=== PATIENT | male | born 1955 | race African-American/Black ===

== ENCOUNTER 2021-01-28 10:29 | Emergency (ER) | payer MEDICARE, OTHER ==
[~2021-01-28] VITALS: Ht 185.4 cm; Wt 67.0 kg
[2021-01-28 11:05] LABS: BASOPHILS % 0.4 % (0.0-2.0); EOSINOPHILS % 1.5 % (0.0-5.0); HEMOGLOBIN. 13.6 g/dL (14.0-18.0); LYMPHOCYTES % 21.4 % (20.0-50.0); MEAN CORPUSCULAR HEMOGLOBIN 32.1 pg (28.0-32.0); MEAN CORPUSCULAR VOLUME 94.4 fL (80.0-94.0); MEAN PLATELET VOLUME 8.7 fl (7.4-10.4); MONOCYTES % 7.3 % (2.0-8.0); NEUTROPHILS % 69.4 % (40.0-76.0); PLATELET 257 x1000/uL (130-400); RED BLOOD CELL COUNT 4.24 mill/uL (4.7-6.1); RED CELL DISTRIBUTION WIDTH 15.1 % (11.6-14.6)
[2021-01-28 11:12] LABS: CHLORIDE 103 mEq/L (98-107)
[2021-01-28 12:45] LABS: CLARITY URINE CLEAR (CLEAR); COLOR URINE YELLOW (YELLOW); KETONES URINE NEGATIVE (NEGATIVE); LEUKOCYTE ESTERASE URINE NEGATIVE (NEGATIVE); NITRITE URINE NEGATIVE (NEGATIVE); OCCULT BLOOD URINE TRACE (NEGATIVE); PROTEIN URINE 3+ (NEGATIVE); SPECIFIC GRAVITY URINE 1.017 (1.005-1.030); UROBILINOGEN URINE 0.2 E.U./dL (0.2-1.0)
[2021-01-28 13:21] VITALS: BP 170/84
== END 2021-01-28 13:31 | disposition home or self-care (01) ==
LOC: ER 10:42
DX: E11.649 Type 2 diabetes mellitus with hypoglycemia without coma (principal); I10 Essential (primary) hypertension
CPT/HCPCS: 36415; 80053; 81003; 82962; 85025; 93005; 99284

== ENCOUNTER 2021-11-20 09:10 | Inpatient (IN) | payer MEDICARE, OTHER ==
[~2021-11-20] VITALS: Ht 188 cm; Wt 80.4 kg
[2021-11-20] VITALS (16 sets, daily range): BP systolic 103–142; BP diastolic 57–75
[2021-11-20 10:30] LABS: BASOPHILS % 0.4 % (0.0-2.0); HEMATOCRIT. 39.7 % (42.0-52.0); HEMOGLOBIN. 13.3 g/dL (14.0-18.0); LYMPHOCYTES % 10.7 % (20.0-50.0); MEAN CORPUSCULAR HEMOGLOBIN 31.1 pg (28.0-32.0); MEAN CORPUSCULAR VOLUME 92.9 fL (80.0-94.0); MEAN PLATELET VOLUME 9.1 fl (7.4-10.4); MONOCYTES % 7.9 % (2.0-8.0); PLATELET 220 x1000/uL (130-400); RED BLOOD CELL COUNT 4.27 mill/uL (4.7-6.1); RED CELL DISTRIBUTION WIDTH 13.9 % (11.6-14.6)
[2021-11-20] MEDS ORDERED: LEVETIRACETAM 500MG PREMIX 100 ML IV SCH (10:30)
[2021-11-20] MEDS ORDERED: NICARDIPINE 100 MG in SODIUM CHLORIDE 0.9% 60 ML IV PRN (10:30)
[2021-11-20 10:36] LABS: CHLORIDE 103 mEq/L (98-107)
[2021-11-20 10:41] LABS: PROTHROMBIN TIME 11.1 sec (9.6-11.0)
[2021-11-20 10:42] LABS: ETHANOL BLOOD < 10 mg/dL
[2021-11-20] MEDS: NICARDIPINE 100 MG in SODIUM CHLORIDE 0.9% 60 ML IV PRN (11:33)
[2021-11-20] MEDS ORDERED: INSULIN REGULAR (HUMULIN R) 300UNITS/3ML VIAL SUBCUT ONE (11:45)
[2021-11-20 13:00] LABS: CLARITY URINE CLEAR (CLEAR); COLOR URINE YELLOW (YELLOW); KETONES URINE 1+ (NEGATIVE); LEUKOCYTE ESTERASE URINE NEGATIVE (NEGATIVE); NITRITE URINE NEGATIVE (NEGATIVE); OCCULT BLOOD URINE 3+ (NEGATIVE); PH URINE 5.5 (4.5-8.0); PROTEIN URINE 4+ (NEGATIVE); SPECIFIC GRAVITY URINE 1.027 (1.005-1.030); UROBILINOGEN URINE 0.2 E.U./dL (0.2-1.0)
[2021-11-20 13:17] LABS: *AMPHETAMINES SCREEN URINE NEGATIVE (NEGATIVE); *BARBITURATES SCREEN URINE NEGATIVE (NEGATIVE); *BENZODIAZEPINES SCREEN URINE NEGATIVE (NEGATIVE); METHADONE URINE SCREEN NEGATIVE (NEGATIVE); OPIATES URINE SCREEN NEGATIVE (NEGATIVE)
[2021-11-20 13:18] LABS: *COCAINE SCREEN URINE NEGATIVE (NEGATIVE); PHENCYCLIDINE URINE SCREEN NEGATIVE (NEGATIVE)
[2021-11-20 13:24] LABS: CANNABINOID URINE SCREEN PRESUMTIVE POSITIVE (NEGATIVE)
[2021-11-20] MEDS ORDERED: ACETAMINOPHEN 325MG TABLET PO PRN (17:45)
[2021-11-20] MEDS ORDERED: HYDROCODONE/ACETAMINOPHEN 5/325MG TABLET PO PRN (17:45)
[2021-11-20] MEDS ORDERED: IPRATROPIUM/ALBUTEROL 0.5-3(2.5)MG/3ML NEB HHN PRN (17:45)
[2021-11-20] MEDS ORDERED: DOCUSATE SODIUM 100MG CAPSULE PO PRN (17:45)
[2021-11-20] MEDS ORDERED: DEXT 5%/LACTATED RINGERS 1,000 ML IV SCH (18:00)
[2021-11-20 21:57] LABS: CREATINE KINASE MB FRACTION 6.4 ng/mL (0.5-3.6)
[2021-11-20] MEDS: LEVETIRACETAM 500MG PREMIX 100 ML IV SCH (22:45)
[2021-11-21] VITALS (54 sets, daily range): BP systolic 108–150; BP diastolic 57–101
[2021-11-21] MEDS: NICARDIPINE 100 MG in SODIUM CHLORIDE 0.9% 60 ML IV PRN (04:58)
[2021-11-21 05:26] LABS: BASOPHILS % 0.3 % (0.0-2.0); EOSINOPHILS % 0.1 % (0.0-5.0); HEMATOCRIT. 34.8 % (42.0-52.0); HEMOGLOBIN. 11.2 g/dL (14.0-18.0); LYMPHOCYTES % 15.8 % (20.0-50.0); MEAN CORPUSCULAR HEMOGLOBIN 31.2 pg (28.0-32.0); MEAN CORPUSCULAR VOLUME 96.5 fL (80.0-94.0); MEAN PLATELET VOLUME 10.2 fl (7.4-10.4); MONOCYTES % 9.2 % (2.0-8.0); NEUTROPHILS % 74.6 % (40.0-76.0); PLATELET 195 x1000/uL (130-400); RED CELL DISTRIBUTION WIDTH 14.1 % (11.6-14.6)
[2021-11-21] MEDS ORDERED: CEFTRIAXONE 1 G PREMIX 50 ML IV SCH (09:00)
[2021-11-21] MEDS ORDERED: DEXTROSE 50% WATER 50ML SYRINGE IV PRN (09:00)
[2021-11-21] MEDS ORDERED: NALOXONE HCL 0.4MG/ML VIAL IV PRN (09:00)
[2021-11-21] MEDS: BLOOD SUGAR DIAGNOSTIC STRIP TEST SCH ×4 (09:00→21:43)
[2021-11-21] MEDS ORDERED: NALOXONE HCL 0.4 MG/ML 1ML VIAL IV NR (09:15)
[2021-11-21 09:27] LABS: CHLORIDE 104 mEq/L (98-107)
[2021-11-21] MEDS ORDERED: NALOXONE HCL 0.4 MG/ML 1ML VIAL ONE (09:28)
[2021-11-21 09:33] LABS: PHOSPHORUS 3.8 mg/dL (2.5-4.9)
[2021-11-21 09:49] LABS: CREATINE KINASE 1830 IU/L (39-308)
[2021-11-21] MEDS: INSULIN LISPRO 100 UNITS/ML SUBCUT SCH ×4 (09:58→21:46)
[2021-11-21] MEDS: SODIUM CHLORIDE 0.9% 1,000 ML IV SCH ×2 (10:34→21:44)
[2021-11-21] MEDS: CEFTRIAXONE 1,000 MG in DEXTROSE 5% WATER 50 ML IV SCH (10:35)
[2021-11-21] MEDS: LEVETIRACETAM 500MG PREMIX 100 ML IV SCH ×2 (11:19→21:44)
[2021-11-21] MEDS: LACTULOSE 20G/30ML UDC PO SCH ×2 (18:20→21:57)
[2021-11-21 19:11] LABS: T4 FREE 1.1 ng/dL (0.76-1.46)
[2021-11-21 19:21] LABS: FOLIC ACID (FOLATE) SERUM 13.4 ng/mL (>5.38)
[2021-11-21] MEDS: INSULIN GLARGINE UD 100 UNITS/ML SYR SUBCUT SCH (21:59)
[2021-11-22] VITALS (58 sets, daily range): BP systolic 107–156; BP diastolic 63–95
[2021-11-22 05:36] LABS: BASOPHILS % 0.3 % (0.0-2.0); EOSINOPHILS % 0.6 % (0.0-5.0); HEMATOCRIT. 37.8 % (42.0-52.0); HEMOGLOBIN. 12.8 g/dL (14.0-18.0); LYMPHOCYTES % 15.8 % (20.0-50.0); MEAN CORPUSCULAR HEMOGLOBIN 31.7 pg (28.0-32.0); MEAN CORPUSCULAR VOLUME 93.4 fL (80.0-94.0); MEAN PLATELET VOLUME 9.7 fl (7.4-10.4); MONOCYTES % 10.3 % (2.0-8.0); PLATELET 203 x1000/uL (130-400); RED BLOOD CELL COUNT 4.04 mill/uL (4.7-6.1); RED CELL DISTRIBUTION WIDTH 13.8 % (11.6-14.6)
[2021-11-22 05:57] LABS: PHOSPHORUS 3.5 mg/dL (2.5-4.9)
[2021-11-22] MEDS: LACTULOSE 20G/30ML UDC PO SCH ×3 (06:00→22:05)
[2021-11-22] MEDS: SODIUM CHLORIDE 0.9% 1,000 ML IV SCH (06:00)
[2021-11-22] MEDS: BLOOD SUGAR DIAGNOSTIC STRIP TEST SCH ×4 (07:14→21:59)
[2021-11-22] MEDS: INSULIN LISPRO 100 UNITS/ML SUBCUT SCH ×4 (07:54→21:00)
[2021-11-22] MEDS: LEVETIRACETAM 500MG PREMIX 100 ML IV SCH ×2 (10:29→21:59)
[2021-11-22] MEDS: SODIUM CHLORIDE 0.45% 1,000 ML IV SCH ×2 (10:34→21:54)
[2021-11-22] MEDS: CEFTRIAXONE 1,000 MG in DEXTROSE 5% WATER 50 ML IV SCH (12:13)
[2021-11-22] MEDS: NICARDIPINE 100 MG in SODIUM CHLORIDE 0.9% 60 ML IV PRN (16:24)
[2021-11-22] MEDS: INSULIN GLARGINE UD 100 UNITS/ML SYR SUBCUT SCH (22:07)
[2021-11-23] VITALS (89 sets, daily range): BP systolic 73–187; BP diastolic 13–128
[2021-11-23 04:49] LABS: BASOPHILS % 0.5 % (0.0-2.0); EOSINOPHILS % 2.4 % (0.0-5.0); HEMATOCRIT. 34.7 % (42.0-52.0); HEMOGLOBIN. 11.9 g/dL (14.0-18.0); MEAN CORPUSCULAR VOLUME 93.3 fL (80.0-94.0); MEAN PLATELET VOLUME 9.5 fl (7.4-10.4); MONOCYTES % 10.1 % (2.0-8.0); PLATELET 181 x1000/uL (130-400); RED BLOOD CELL COUNT 3.71 mill/uL (4.7-6.1); RED CELL DISTRIBUTION WIDTH 13.4 % (11.6-14.6)
[2021-11-23 05:06] LABS: CHLORIDE 110 mEq/L (98-107)
[2021-11-23] MEDS: SODIUM CHLORIDE 0.45% 1,000 ML IV SCH ×2 (06:16→16:11)
[2021-11-23] MEDS: LACTULOSE 20G/30ML UDC PO SCH ×3 (06:17→21:24)
[2021-11-23] MEDS: BLOOD SUGAR DIAGNOSTIC STRIP TEST SCH ×4 (06:30→20:37)
[2021-11-23] MEDS: INSULIN LISPRO 100 UNITS/ML SUBCUT SCH ×4 (06:37→20:38)
[2021-11-23] MEDS ORDERED: POTASSIUM CHLORIDE 20MEQ/PACKET PO SCH (08:00)
[2021-11-23] MEDS: LEVETIRACETAM 500MG PREMIX 100 ML IV SCH ×2 (08:33→20:07)
[2021-11-23] MEDS: CEFTRIAXONE 1,000 MG in DEXTROSE 5% WATER 50 ML IV SCH (11:51)
[2021-11-23] MEDS: CLONIDINE 0.1MG TABLET PO PRN (16:15)
[2021-11-23] MEDS: ACETAMINOPHEN 325MG TABLET PO PRN (20:08)
[2021-11-23] MEDS ORDERED: MORPHINE SULFATE 2 MG/ML CPJ (NOT FOR IM USE) IV PRN (20:45)
[2021-11-23] MEDS: INSULIN GLARGINE UD 100 UNITS/ML SYR SUBCUT SCH (21:24)
[2021-11-24] VITALS (59 sets, daily range): BP systolic 92–177; BP diastolic 24–126
[2021-11-24] MEDS: SODIUM CHLORIDE 0.45% 1,000 ML IV SCH ×3 (01:10→21:04)
[2021-11-24] MEDS: LACTULOSE 20G/30ML UDC PO SCH ×3 (05:36→21:04)
[2021-11-24] MEDS: NICARDIPINE 100 MG in SODIUM CHLORIDE 0.9% 60 ML IV PRN (05:36)
[2021-11-24] MEDS: BLOOD SUGAR DIAGNOSTIC STRIP TEST SCH ×4 (05:51→21:04)
[2021-11-24 05:52] LABS: BASOPHILS % 0.4 % (0.0-2.0); HEMATOCRIT. 33.7 % (42.0-52.0); LYMPHOCYTES % 13.4 % (20.0-50.0); MEAN CORPUSCULAR HEMOGLOBIN 30.9 pg (28.0-32.0); MEAN CORPUSCULAR VOLUME 95.1 fL (80.0-94.0); MEAN PLATELET VOLUME 9.9 fl (7.4-10.4); MONOCYTES % 10.9 % (2.0-8.0); NEUTROPHILS % 73.3 % (40.0-76.0); PLATELET 183 x1000/uL (130-400); RED BLOOD CELL COUNT 3.55 mill/uL (4.7-6.1); RED CELL DISTRIBUTION WIDTH 13.9 % (11.6-14.6)
[2021-11-24] MEDS: INSULIN LISPRO 100 UNITS/ML SUBCUT SCH ×4 (07:33→21:04)
[2021-11-24] MEDS: LEVETIRACETAM 500MG PREMIX 100 ML IV SCH ×2 (09:23→21:04)
[2021-11-24] MEDS: CEFTRIAXONE 1,000 MG in DEXTROSE 5% WATER 50 ML IV SCH (11:00)
[2021-11-24] MEDS: LIDOCAINE 5% PATCH TOP SCH (13:00)
[2021-11-24] MEDS: DILTIAZEM HCL 60MG TABLET PO SCH ×2 (14:00→21:02)
[2021-11-24] MEDS: CLONIDINE 0.1MG TABLET PO PRN (21:02)
[2021-11-24] MEDS: INSULIN GLARGINE UD 100 UNITS/ML SYR SUBCUT SCH (21:03)
[2021-11-25] VITALS (87 sets, daily range): BP systolic 125–166; BP diastolic 51–88
[2021-11-25] MEDS: ONDANSETRON HCL 4MG/2ML INJ IV PRN (03:20)
[2021-11-25] MEDS: DILTIAZEM HCL 60MG TABLET PO SCH ×3 (05:19→17:07)
[2021-11-25] MEDS: LACTULOSE 20G/30ML UDC PO SCH ×3 (05:19→22:00)
[2021-11-25 06:20] LABS: BASOPHILS % 0.2 % (0.0-2.0); EOSINOPHILS % 1.4 % (0.0-5.0); HEMATOCRIT. 34.8 % (42.0-52.0); HEMOGLOBIN. 11.5 g/dL (14.0-18.0); LYMPHOCYTES % 9.2 % (20.0-50.0); MEAN CORPUSCULAR HEMOGLOBIN 30.8 pg (28.0-32.0); MEAN CORPUSCULAR VOLUME 93.5 fL (80.0-94.0); MEAN PLATELET VOLUME 9.8 fl (7.4-10.4); MONOCYTES % 9.2 % (2.0-8.0); PLATELET 196 x1000/uL (130-400); RED BLOOD CELL COUNT 3.72 mill/uL (4.7-6.1); RED CELL DISTRIBUTION WIDTH 13.8 % (11.6-14.6)
[2021-11-25] MEDS: BLOOD SUGAR DIAGNOSTIC STRIP TEST SCH ×4 (06:35→21:21)
[2021-11-25] MEDS: INSULIN LISPRO 100 UNITS/ML SUBCUT SCH ×4 (06:35→21:00)
[2021-11-25 06:59] LABS: PHOSPHORUS 2.6 mg/dL (2.5-4.9)
[2021-11-25] MEDS: LEVETIRACETAM 500MG PREMIX 100 ML IV SCH ×2 (08:00→22:31)
[2021-11-25] MEDS: SODIUM CHLORIDE 0.45% 1,000 ML IV SCH ×2 (08:00→18:22)
[2021-11-25] MEDS: LIDOCAINE 5% PATCH TOP SCH (08:01)
[2021-11-25] MEDS: NICARDIPINE 100 MG in SODIUM CHLORIDE 0.9% 60 ML IV PRN (08:11)
[2021-11-25] MEDS: CLONIDINE 0.1MG TABLET PO PRN (12:21)
[2021-11-25] MEDS: CEFTRIAXONE 1,000 MG in DEXTROSE 5% WATER 50 ML IV SCH (12:21)
[2021-11-25] MEDS: METOCLOPRAMIDE HCL 10MG/2ML VIAL IV SCH (17:07)
[2021-11-25] MEDS: INSULIN GLARGINE UD 100 UNITS/ML SYR SUBCUT SCH (23:03)
[2021-11-26] VITALS (19 sets, daily range): BP systolic 147–173; BP diastolic 75–90
[2021-11-26] MEDS: METOCLOPRAMIDE HCL 10MG/2ML VIAL IV SCH ×5 (00:03→23:50)
[2021-11-26] MEDS: DILTIAZEM HCL 60MG TABLET PO SCH ×2 (00:04→05:59)
[2021-11-26] MEDS: SODIUM CHLORIDE 0.45% 1,000 ML IV SCH ×2 (05:12→18:07)
[2021-11-26] MEDS: LACTULOSE 20G/30ML UDC PO SCH ×3 (06:00→22:05)
[2021-11-26] MEDS: BLOOD SUGAR DIAGNOSTIC STRIP TEST SCH ×4 (07:30→21:00)
[2021-11-26] MEDS: INSULIN LISPRO 100 UNITS/ML SUBCUT SCH ×4 (08:00→22:06)
[2021-11-26] MEDS: LIDOCAINE 5% PATCH TOP SCH (09:01)
[2021-11-26] MEDS: LEVETIRACETAM 500MG PREMIX 100 ML IV SCH ×2 (09:01→22:05)
[2021-11-26 10:35] LABS: CHLORIDE 104 mEq/L (98-107)
[2021-11-26 10:37] LABS: BASOPHILS % 0.2 % (0.0-2.0); EOSINOPHILS % 2.6 % (0.0-5.0); HEMATOCRIT. 37.1 % (42.0-52.0); HEMOGLOBIN. 12.1 g/dL (14.0-18.0); MEAN CORPUSCULAR HEMOGLOBIN 30.8 pg (28.0-32.0); MEAN CORPUSCULAR VOLUME 94.2 fL (80.0-94.0); MEAN PLATELET VOLUME 9.7 fl (7.4-10.4); MONOCYTES % 7.8 % (2.0-8.0); NEUTROPHILS % 79.4 % (40.0-76.0); PLATELET 231 x1000/uL (130-400); RED BLOOD CELL COUNT 3.94 mill/uL (4.7-6.1); RED CELL DISTRIBUTION WIDTH 14.1 % (11.6-14.6)
[2021-11-26 10:42] LABS: PHOSPHORUS 3.4 mg/dL (2.5-4.9)
[2021-11-26] MEDS: DILTIAZEM HCL 90MG TABLET PO SCH ×3 (12:08→23:50)
[2021-11-26] MEDS: CEFTRIAXONE 1,000 MG in DEXTROSE 5% WATER 50 ML IV SCH (15:19)
[2021-11-26] MEDS: HYDRALAZINE HCL 50MG TABLET PO SCH (22:05)
[2021-11-26] MEDS: INSULIN GLARGINE UD 100 UNITS/ML SYR SUBCUT SCH (22:06)
[2021-11-27] VITALS (11 sets, daily range): BP systolic 145–173; BP diastolic 77–124
[2021-11-27] MEDS: CLONIDINE 0.1MG TABLET PO PRN ×2 (03:28→15:49)
[2021-11-27] MEDS: DILTIAZEM HCL 90MG TABLET PO SCH (05:21)
[2021-11-27] MEDS: METOCLOPRAMIDE HCL 10MG/2ML VIAL IV SCH ×4 (05:21→23:19)
[2021-11-27] MEDS: LACTULOSE 20G/30ML UDC PO SCH ×3 (05:22→21:50)
[2021-11-27 06:42] LABS: PHOSPHORUS 2.5 mg/dL (2.5-4.9)
[2021-11-27 06:51] LABS: BASOPHILS % 0.1 % (0.0-2.0); EOSINOPHILS % 3.5 % (0.0-5.0); HEMATOCRIT. 34.1 % (42.0-52.0); HEMOGLOBIN. 11.6 g/dL (14.0-18.0); LYMPHOCYTES % 15.1 % (20.0-50.0); MEAN CORPUSCULAR HEMOGLOBIN 31.5 pg (28.0-32.0); MEAN PLATELET VOLUME 9.5 fl (7.4-10.4); MONOCYTES % 10.5 % (2.0-8.0); NEUTROPHILS % 70.8 % (40.0-76.0); PLATELET 246 x1000/uL (130-400); RED BLOOD CELL COUNT 3.67 mill/uL (4.7-6.1); RED CELL DISTRIBUTION WIDTH 13.8 % (11.6-14.6)
[2021-11-27] MEDS: BLOOD SUGAR DIAGNOSTIC STRIP TEST SCH ×4 (07:30→20:14)
[2021-11-27] MEDS: INSULIN LISPRO 100 UNITS/ML SUBCUT SCH ×4 (08:00→21:00)
[2021-11-27] MEDS: LIDOCAINE 5% PATCH TOP SCH (08:42)
[2021-11-27] MEDS: LEVETIRACETAM 500MG PREMIX 100 ML IV SCH ×2 (08:43→20:14)
[2021-11-27] MEDS: SODIUM CHLORIDE 0.45% 1,000 ML IV SCH (08:43)
[2021-11-27] MEDS: HYDRALAZINE HCL 50MG TABLET PO SCH (08:43)
[2021-11-27] MEDS: ONDANSETRON HCL 4MG/2ML INJ IV PRN (11:20)
[2021-11-27] MEDS: CEFTRIAXONE 1,000 MG in DEXTROSE 5% WATER 50 ML IV SCH (15:10)
[2021-11-27] MEDS: DILTIAZEM HCL 120MG CAPSULE CD 24HR PO SCH (18:51)
[2021-11-27] MEDS: HYDRALAZINE HCL 100MG TABLET PO SCH (20:14)
[2021-11-27] MEDS: INSULIN GLARGINE UD 100 UNITS/ML SYR SUBCUT SCH (22:09)
[2021-11-27] MEDS ORDERED: CLONIDINE 0.2MG TABLET PO PRN (23:45)
[2021-11-28] VITALS: BP 188/88
[2021-11-28] MEDS: SODIUM CHLORIDE 0.45% 1,000 ML IV SCH (01:52)
[2021-11-28 04:00] VITALS: BP 189/86
[2021-11-28 06:13] LABS: BASOPHILS % 0.6 % (0.0-2.0); EOSINOPHILS % 5.3 % (0.0-5.0); HEMATOCRIT. 36.1 % (42.0-52.0); HEMOGLOBIN. 12.2 g/dL (14.0-18.0); LYMPHOCYTES % 16.4 % (20.0-50.0); MEAN CORPUSCULAR HEMOGLOBIN 31.3 pg (28.0-32.0); MEAN CORPUSCULAR VOLUME 92.3 fL (80.0-94.0); MEAN PLATELET VOLUME 9.4 fl (7.4-10.4); MONOCYTES % 10.7 % (2.0-8.0); PLATELET 306 x1000/uL (130-400); RED BLOOD CELL COUNT 3.91 mill/uL (4.7-6.1); RED CELL DISTRIBUTION WIDTH 13.7 % (11.6-14.6)
[2021-11-28] MEDS: LACTULOSE 20G/30ML UDC PO SCH ×3 (06:33→21:40)
[2021-11-28] MEDS: METOCLOPRAMIDE HCL 10MG/2ML VIAL IV SCH ×3 (06:33→17:50)
[2021-11-28 06:55] LABS: PHOSPHORUS 2.3 mg/dL (2.5-4.9)
[2021-11-28] MEDS: BLOOD SUGAR DIAGNOSTIC STRIP TEST SCH ×4 (07:30→21:00)
[2021-11-28 08:00] VITALS: BP 174/84
[2021-11-28] MEDS: INSULIN LISPRO 100 UNITS/ML SUBCUT SCH ×4 (08:00→21:46)
[2021-11-28] MEDS: LEVETIRACETAM 500MG PREMIX 100 ML IV SCH ×2 (08:48→21:21)
[2021-11-28] MEDS: LIDOCAINE 5% PATCH TOP SCH (08:52)
[2021-11-28] MEDS: DILTIAZEM HCL 120MG CAPSULE CD 24HR PO SCH ×2 (08:53→21:00)
[2021-11-28] MEDS: HYDRALAZINE HCL 100MG TABLET PO SCH ×3 (08:53→21:40)
[2021-11-28] MEDS ORDERED: SODIUM PHOS,M-BASIC-D-BASIC 15 MM in DEXT 5% WATER 245 ML IV NR (11:00)
[2021-11-28 12:00] VITALS: BP 110/66
[2021-11-28 16:00] VITALS: BP 131/72
[2021-11-28] MEDS: CEFTRIAXONE 1,000 MG in DEXTROSE 5% WATER 50 ML IV SCH (17:49)
[2021-11-28 20:00] VITALS: BP 145/75
[2021-11-28] MEDS: MELATONIN 3MG TABLET PO SCH (21:47)
[2021-11-28] MEDS: INSULIN GLARGINE UD 100 UNITS/ML SYR SUBCUT SCH (22:02)
[2021-11-29] VITALS: BP 132/70
[2021-11-29] MEDS: METOCLOPRAMIDE HCL 10MG/2ML VIAL IV SCH ×5 (00:36→23:51)
[2021-11-29 04:00] VITALS: BP 140/66
[2021-11-29] MEDS: HYDRALAZINE HCL 100MG TABLET PO SCH ×3 (06:17→21:00)
[2021-11-29] MEDS: LACTULOSE 20G/30ML UDC PO SCH ×3 (06:18→21:00)
[2021-11-29 07:07] LABS: BASOPHILS % 0.5 % (0.0-2.0); HEMATOCRIT. 34.9 % (42.0-52.0); HEMOGLOBIN. 11.8 g/dL (14.0-18.0); LYMPHOCYTES % 24.2 % (20.0-50.0); MEAN CORPUSCULAR HEMOGLOBIN 31.3 pg (28.0-32.0); MEAN PLATELET VOLUME 9.2 fl (7.4-10.4); MONOCYTES % 13.7 % (2.0-8.0); NEUTROPHILS % 53.6 % (40.0-76.0); PLATELET 321 x1000/uL (130-400); RED BLOOD CELL COUNT 3.76 mill/uL (4.7-6.1); RED CELL DISTRIBUTION WIDTH 13.7 % (11.6-14.6)
[2021-11-29 07:29] LABS: PHOSPHORUS 3.3 mg/dL (2.5-4.9)
[2021-11-29 08:00] VITALS: BP 126/79
[2021-11-29] MEDS: INSULIN LISPRO 100 UNITS/ML SUBCUT SCH ×4 (08:00→20:58)
[2021-11-29] MEDS: BLOOD SUGAR DIAGNOSTIC STRIP TEST SCH ×4 (08:00→20:58)
[2021-11-29] MEDS: LEVETIRACETAM 500MG PREMIX 100 ML IV SCH ×2 (09:15→23:49)
[2021-11-29] MEDS: DILTIAZEM HCL 120MG CAPSULE CD 24HR PO SCH ×2 (09:19→20:56)
[2021-11-29] MEDS: LIDOCAINE 5% PATCH TOP SCH (09:19)
[2021-11-29 12:00] VITALS: BP 130/67
[2021-11-29] MEDS: CEFTRIAXONE 1,000 MG in DEXTROSE 5% WATER 50 ML IV SCH (15:33)
[2021-11-29 16:00] VITALS: BP 144/73
[2021-11-29 20:00] VITALS: BP 120/65
[2021-11-29] MEDS: ACETAMINOPHEN 325MG TABLET PO PRN (20:50)
[2021-11-29] MEDS: MELATONIN 3MG TABLET PO SCH (20:57)
[2021-11-29] MEDS: INSULIN GLARGINE UD 100 UNITS/ML SYR SUBCUT SCH (21:02)
[2021-11-30] VITALS: BP 101/54
[2021-11-30 04:00] VITALS: BP 120/67
[2021-11-30] MEDS: HYDRALAZINE HCL 100MG TABLET PO SCH ×3 (06:22→21:57)
[2021-11-30] MEDS: LACTULOSE 20G/30ML UDC PO SCH ×3 (06:22→21:56)
[2021-11-30] MEDS: METOCLOPRAMIDE HCL 10MG/2ML VIAL IV SCH ×3 (06:22→17:09)
[2021-11-30 06:32] LABS: PHOSPHORUS 2.9 mg/dL (2.5-4.9)
[2021-11-30 06:34] LABS: BASOPHILS % 0.7 % (0.0-2.0); HEMATOCRIT. 33.6 % (42.0-52.0); HEMOGLOBIN. 11.1 g/dL (14.0-18.0); LYMPHOCYTES % 29.9 % (20.0-50.0); MEAN CORPUSCULAR HEMOGLOBIN 30.9 pg (28.0-32.0); MEAN CORPUSCULAR VOLUME 93.8 fL (80.0-94.0); MEAN PLATELET VOLUME 8.6 fl (7.4-10.4); NEUTROPHILS % 49.4 % (40.0-76.0); PLATELET 337 x1000/uL (130-400); RED BLOOD CELL COUNT 3.58 mill/uL (4.7-6.1); RED CELL DISTRIBUTION WIDTH 13.8 % (11.6-14.6)
[2021-11-30] MEDS: BLOOD SUGAR DIAGNOSTIC STRIP TEST SCH ×4 (07:30→21:56)
[2021-11-30 08:00] VITALS: BP 105/49
[2021-11-30] MEDS: INSULIN LISPRO 100 UNITS/ML SUBCUT SCH ×4 (08:00→21:58)
[2021-11-30] MEDS: LEVETIRACETAM 500MG PREMIX 100 ML IV SCH ×2 (08:57→21:51)
[2021-11-30] MEDS: LIDOCAINE 5% PATCH TOP SCH (09:01)
[2021-11-30] MEDS: DILTIAZEM HCL 120MG CAPSULE CD 24HR PO SCH ×2 (09:01→21:54)
[2021-11-30 12:00] VITALS: BP 125/57
[2021-11-30 16:00] VITALS: BP 128/63
[2021-11-30] MEDS: CEFTRIAXONE 1,000 MG in DEXTROSE 5% WATER 50 ML IV SCH (16:51)
[2021-11-30] MEDS: ACETAMINOPHEN 325MG TABLET PO PRN (18:31)
[2021-11-30 20:00] VITALS: BP 116/95
[2021-11-30] MEDS: MELATONIN 3MG TABLET PO SCH (21:56)
[2021-11-30] MEDS: INSULIN GLARGINE UD 100 UNITS/ML SYR SUBCUT SCH (22:10)
[2021-12-01] VITALS (9 sets, daily range): BP systolic 89–151; BP diastolic 47–77
[2021-12-01] MEDS: METOCLOPRAMIDE HCL 10MG/2ML VIAL IV SCH ×4 (00:03→17:25)
[2021-12-01] MEDS: ACETAMINOPHEN 325MG TABLET PO PRN (02:45)
[2021-12-01] MEDS: HYDRALAZINE HCL 100MG TABLET PO SCH ×3 (06:00→21:45)
[2021-12-01] MEDS: LACTULOSE 20G/30ML UDC PO SCH ×3 (06:17→21:46)
[2021-12-01 07:07] LABS: BASOPHILS % 0.6 % (0.0-2.0); EOSINOPHILS % 5.1 % (0.0-5.0); HEMATOCRIT. 31.3 % (42.0-52.0); HEMOGLOBIN. 10.7 g/dL (14.0-18.0); LYMPHOCYTES % 30.1 % (20.0-50.0); MEAN CORPUSCULAR HEMOGLOBIN 31.7 pg (28.0-32.0); MEAN CORPUSCULAR VOLUME 92.9 fL (80.0-94.0); MEAN PLATELET VOLUME 8.8 fl (7.4-10.4); MONOCYTES % 14.9 % (2.0-8.0); NEUTROPHILS % 49.3 % (40.0-76.0); PLATELET 348 x1000/uL (130-400); RED BLOOD CELL COUNT 3.37 mill/uL (4.7-6.1); RED CELL DISTRIBUTION WIDTH 13.7 % (11.6-14.6)
[2021-12-01] MEDS: BLOOD SUGAR DIAGNOSTIC STRIP TEST SCH ×4 (07:30→21:45)
[2021-12-01 07:32] LABS: PHOSPHORUS 2.9 mg/dL (2.5-4.9)
[2021-12-01] MEDS: INSULIN LISPRO 100 UNITS/ML SUBCUT SCH ×4 (08:00→21:47)
[2021-12-01] MEDS: LIDOCAINE 5% PATCH TOP SCH (08:48)
[2021-12-01] MEDS: DILTIAZEM HCL 120MG CAPSULE CD 24HR PO SCH ×2 (08:48→21:44)
[2021-12-01] MEDS: LEVETIRACETAM 500MG PREMIX 100 ML IV SCH ×2 (08:49→21:43)
[2021-12-01] MEDS: CEFTRIAXONE 1,000 MG in DEXTROSE 5% WATER 50 ML IV SCH (17:18)
[2021-12-01] MEDS: ATORVASTATIN CALCIUM 20MG TABLET PO SCH (21:44)
[2021-12-01] MEDS: MELATONIN 3MG TABLET PO SCH (21:45)
[2021-12-01] MEDS: INSULIN GLARGINE UD 100 UNITS/ML SYR SUBCUT SCH (21:48)
[2021-12-02] VITALS: BP 118/93
[2021-12-02] MEDS: METOCLOPRAMIDE HCL 10MG/2ML VIAL IV SCH ×4 (00:01→17:59)
[2021-12-02] MEDS: ACETAMINOPHEN 325MG TABLET PO PRN ×3 (00:30→19:53)
[2021-12-02 02:00] VITALS: BP 119/70
[2021-12-02 04:00] VITALS: BP 105/52
[2021-12-02] MEDS: LACTULOSE 20G/30ML UDC PO SCH ×3 (06:00→22:13)
[2021-12-02] MEDS: HYDRALAZINE HCL 100MG TABLET PO SCH ×3 (06:05→22:13)
[2021-12-02 06:51] LABS: BASOPHILS % 0.7 % (0.0-2.0); HEMATOCRIT. 33.8 % (42.0-52.0); HEMOGLOBIN. 11.6 g/dL (14.0-18.0); LYMPHOCYTES % 23.5 % (20.0-50.0); MEAN CORPUSCULAR HEMOGLOBIN 31.4 pg (28.0-32.0); MEAN CORPUSCULAR VOLUME 91.3 fL (80.0-94.0); MEAN PLATELET VOLUME 8.1 fl (7.4-10.4); MONOCYTES % 10.9 % (2.0-8.0); NEUTROPHILS % 58.9 % (40.0-76.0); PLATELET 385 x1000/uL (130-400); RED BLOOD CELL COUNT 3.71 mill/uL (4.7-6.1); RED CELL DISTRIBUTION WIDTH 14.1 % (11.6-14.6)
[2021-12-02] MEDS: BLOOD SUGAR DIAGNOSTIC STRIP TEST SCH ×4 (06:56→21:24)
[2021-12-02 07:22] LABS: PHOSPHORUS 2.7 mg/dL (2.5-4.9)
[2021-12-02 08:00] VITALS: BP 106/58
[2021-12-02] MEDS: INSULIN LISPRO 100 UNITS/ML SUBCUT SCH ×4 (08:34→21:00)
[2021-12-02] MEDS: LIDOCAINE 5% PATCH TOP SCH ×2 (08:36→08:42)
[2021-12-02] MEDS: DILTIAZEM HCL 120MG CAPSULE CD 24HR PO SCH ×2 (09:48→21:23)
[2021-12-02] MEDS: LEVETIRACETAM 500MG PREMIX 100 ML IV SCH ×2 (09:48→21:22)
[2021-12-02 12:00] VITALS: BP 118/78
[2021-12-02 16:00] VITALS: BP 106/65
[2021-12-02] MEDS: ATORVASTATIN CALCIUM 20MG TABLET PO SCH (21:23)
[2021-12-02] MEDS: MELATONIN 3MG TABLET PO SCH (21:23)
[2021-12-02] MEDS: INSULIN GLARGINE UD 100 UNITS/ML SYR SUBCUT SCH (22:16)
[2021-12-03] MEDS ORDERED: LOSA100T32 PO (01:55)
[2021-12-03] MEDS ORDERED: TIMO15DR11 EACHEYE (01:58)
[2021-12-03] MEDS ORDERED: LEVVL SQ (02:03)
== END 2021-12-02 23:52 | DRG 64 ==
LOC: ER 09:10 → MICUNO 12:35 → EDBEDREQ 13:34 → EDBEDREQTM 13:34 → EDBEDREQSVC 13:34 → ENRESERV 15:31 → 5EST 11-25 22:18
PROVIDERS: ADMIT Internal Medicine; ATTEND Internal Medicine
PROC: 4A10X4Z Monitoring of Central Nervous Electrical Activity, External Approach (ICD-10-PCS; principal; 2021-11-21)
DX: I62.01 Nontraumatic acute subdural hemorrhage (principal); G92.8 Other toxic encephalopathy; G82.50 Quadriplegia, unspecified; I16.1 Hypertensive emergency; M62.82 Rhabdomyolysis; E72.20 Disorder of urea cycle metabolism, unspecified; N17.9 Acute kidney failure, unspecified; N18.30 Chronic kidney disease, stage 3 unspecified; E78.5 Hyperlipidemia, unspecified; E78.00 Pure hypercholesterolemia, unspecified; E11.65 Type 2 diabetes mellitus with hyperglycemia; R74.01 Elevation of levels of liver transaminase levels; D64.9 Anemia, unspecified; F12.90 Cannabis use, unspecified, uncomplicated; E78.1 Pure hyperglyceridemia; R13.10 Dysphagia, unspecified; R47.1 Dysarthria and anarthria; R47.01 Aphasia; E87.6 Hypokalemia; I62.03 Nontraumatic chronic subdural hemorrhage; I12.9 Hypertensive chronic kidney disease with stage 1 through stage 4 chronic kidney disease, or unspecified chronic kidney disease; E11.22 Type 2 diabetes mellitus with diabetic chronic kidney disease; Z20.822 Contact with and (suspected) exposure to COVID-19; S51.812A Laceration without foreign body of left forearm, initial encounter; X58.XXXA Exposure to other specified factors, initial encounter; Z79.4 Long term (current) use of insulin; Z78.1 Physical restraint status; Z86.73 Personal history of transient ischemic attack (TIA), and cerebral infarction without residual deficits; Y93.89 Activity, other specified; Y92.89 Other specified places as the place of occurrence of the external cause; Y99.8 Other external cause status; Z82.49 Family history of ischemic heart disease and other diseases of the circulatory system; Z83.3 Family history of diabetes mellitus; Z87.891 Personal history of nicotine dependence; Z91.19 Patient's noncompliance with other medical treatment and regimen
CPT/HCPCS: 36415; 70544; 70553; 71045; 74018; 76770; 80048; 80053; 80061; 80076; 80305; 80320; 81003; 82010; 82140; 82550; 82553; 82607; 82746; 82962; 83036; 83735; 84100; 84145; 84153; 84439; 84443; 84481; 84484; 85025; 87426; 92610; 93005; 93306; 93970; 97116; 97162; 97166; 97530; 99291; C1893; J0696; J1815; J1953; J2270; J2310; J2405; J2765; J3490; J7030; J7040; J7050; J7060; J7121; A4315; G0103; G0480

== ENCOUNTER 2021-12-02 23:30 | Inpatient (IN) | payer MEDICARE, OTHER ==
[~2021-12-02] VITALS: Ht 188 cm; Wt 71.5 kg
[2021-12-02 23:50] VITALS: BP 125/66
[2021-12-03] MEDS ORDERED: IPRATROPIUM/ALBUTEROL 0.5-3(2.5)MG/3ML NEB HHN PRN (00:15)
[2021-12-03] MEDS ORDERED: DOCUSATE SODIUM 100MG CAPSULE PO PRN (00:15)
[2021-12-03] MEDS ORDERED: ACETAMINOPHEN 325MG TABLET PO PRN (00:15)
[2021-12-03] MEDS ORDERED: DEXTROSE 50% WATER 50ML SYRINGE IV PRN (00:15)
[2021-12-03] MEDS ORDERED: CLONIDINE 0.2MG TABLET PO PRN (00:15)
[2021-12-03] MEDS ORDERED: LOSA100T32 PO (01:55)
[2021-12-03] MEDS ORDERED: TIMO15DR11 EACHEYE (01:58)
[2021-12-03] MEDS ORDERED: LEVVL SQ (02:03)
[2021-12-03] MEDS: HYDRALAZINE HCL 100MG TABLET PO SCH ×3 (05:13→21:10)
[2021-12-03] MEDS: METOCLOPRAMIDE HCL 5MG TABLET PO SCH ×4 (05:13→23:19)
[2021-12-03] MEDS: LACTULOSE 20G/30ML UDC PO SCH ×3 (05:13→21:17)
[2021-12-03] MEDS: BLOOD SUGAR DIAGNOSTIC STRIP TEST SCH ×4 (06:30→21:10)
[2021-12-03] MEDS: INSULIN LISPRO 100 UNITS/ML SUBCUT SCH ×4 (06:30→21:00)
[2021-12-03 07:32] LABS: BASOPHILS % 0.7 % (0.0-2.0); EOSINOPHILS % 4.7 % (0.0-5.0); HEMATOCRIT. 33.7 % (42.0-52.0); HEMOGLOBIN. 11.5 g/dL (14.0-18.0); LYMPHOCYTES % 26.8 % (20.0-50.0); MEAN CORPUSCULAR HEMOGLOBIN 31.7 pg (28.0-32.0); MEAN PLATELET VOLUME 8.1 fl (7.4-10.4); MONOCYTES % 10.8 % (2.0-8.0); PLATELET 394 x1000/uL (130-400); RED BLOOD CELL COUNT 3.62 mill/uL (4.7-6.1); RED CELL DISTRIBUTION WIDTH 13.9 % (11.6-14.6)
[2021-12-03 07:52] LABS: CHLORIDE 107 mEq/L (98-107)
[2021-12-03 07:59] LABS: PHOSPHORUS 2.8 mg/dL (2.5-4.9)
[2021-12-03 08:00] VITALS: BP 131/66
[2021-12-03] MEDS: DILTIAZEM HCL 120MG CAPSULE CD 24HR PO SCH ×2 (09:52→20:23)
[2021-12-03] MEDS: LEVETIRACETAM 500MG TABLET PO SCH ×2 (09:53→20:22)
[2021-12-03] MEDS: LIDOCAINE 5% PATCH TOP SCH (09:53)
[2021-12-03] MEDS: ACETAMINOPHEN 325MG TABLET PO PRN ×2 (09:55→21:21)
[2021-12-03] MEDS: ONDANSETRON HCL 4MG TABLET PO PRN (11:54)
[2021-12-03 20:00] VITALS: BP 106/54
[2021-12-03] MEDS: ATORVASTATIN CALCIUM 20MG TABLET PO SCH (20:22)
[2021-12-03] MEDS: MELATONIN 3MG TABLET PO SCH (20:24)
[2021-12-03] MEDS ORDERED: NON FORMULARY PATIENT HOME MED PO SCH (21:00)
[2021-12-03] MEDS: INSULIN GLARGINE UD 100 UNITS/ML SYR SUBCUT SCH (21:22)
[2021-12-04] MEDS: HYDRALAZINE HCL 100MG TABLET PO SCH ×3 (06:00→21:44)
[2021-12-04] MEDS: LACTULOSE 20G/30ML UDC PO SCH ×3 (06:10→21:45)
[2021-12-04] MEDS: METOCLOPRAMIDE HCL 5MG TABLET PO SCH ×4 (06:10→23:30)
[2021-12-04] MEDS: BLOOD SUGAR DIAGNOSTIC STRIP TEST SCH ×4 (06:32→21:06)
[2021-12-04] MEDS: INSULIN LISPRO 100 UNITS/ML SUBCUT SCH ×4 (06:33→21:42)
[2021-12-04 07:03] LABS: BASOPHILS % 0.5 % (0.0-2.0); EOSINOPHILS % 5.5 % (0.0-5.0); HEMATOCRIT. 34.8 % (42.0-52.0); HEMOGLOBIN. 11.8 g/dL (14.0-18.0); LYMPHOCYTES % 27.3 % (20.0-50.0); MEAN CORPUSCULAR HEMOGLOBIN 31.2 pg (28.0-32.0); MEAN CORPUSCULAR VOLUME 92.4 fL (80.0-94.0); MEAN PLATELET VOLUME 8.1 fl (7.4-10.4); MONOCYTES % 9.6 % (2.0-8.0); NEUTROPHILS % 57.1 % (40.0-76.0); PLATELET 423 x1000/uL (130-400); RED BLOOD CELL COUNT 3.76 mill/uL (4.7-6.1); RED CELL DISTRIBUTION WIDTH 14.1 % (11.6-14.6)
[2021-12-04 07:14] LABS: CHLORIDE 105 mEq/L (98-107)
[2021-12-04 07:28] LABS: CREATINE KINASE 250 IU/L (39-308); PHOSPHORUS 2.8 mg/dL (2.5-4.9)
[2021-12-04 07:30] LABS: HDL CHOLESTEROL 74 mg/dL (40-59); LDL CHOLESTEROL 29 mg/dL (5-100)
[2021-12-04 07:47] LABS: FOLIC ACID (FOLATE) SERUM 5.2 ng/mL (>5.38)
[2021-12-04 08:00] VITALS: BP 151/75
[2021-12-04 09:00] VITALS: BP 89/36
[2021-12-04 09:03] VITALS: BP 110/36
[2021-12-04] MEDS: LIDOCAINE 5% PATCH TOP SCH (09:35)
[2021-12-04] MEDS: DILTIAZEM HCL 120MG CAPSULE CD 24HR PO SCH ×2 (09:35→21:07)
[2021-12-04] MEDS: FOLIC ACID 1MG TABLET PO SCH (09:35)
[2021-12-04] MEDS: LEVETIRACETAM 500MG TABLET PO SCH ×2 (09:35→21:05)
[2021-12-04 13:30] VITALS: BP 162/78
[2021-12-04 20:00] VITALS: BP 119/63
[2021-12-04] MEDS: ATORVASTATIN CALCIUM 20MG TABLET PO SCH (21:06)
[2021-12-04] MEDS: MELATONIN 3MG TABLET PO SCH (21:06)
[2021-12-04] MEDS: INSULIN GLARGINE UD 100 UNITS/ML SYR SUBCUT SCH (21:42)
[2021-12-05 06:16] VITALS: BP 149/71
[2021-12-05] MEDS: LACTULOSE 20G/30ML UDC PO SCH ×3 (06:28→20:53)
[2021-12-05] MEDS: HYDRALAZINE HCL 100MG TABLET PO SCH ×3 (06:28→20:52)
[2021-12-05] MEDS: METOCLOPRAMIDE HCL 5MG TABLET PO SCH ×3 (06:29→17:05)
[2021-12-05] MEDS: BLOOD SUGAR DIAGNOSTIC STRIP TEST SCH ×4 (06:29→20:54)
[2021-12-05 07:25] LABS: BASOPHILS % 0.8 % (0.0-2.0); EOSINOPHILS % 5.1 % (0.0-5.0); HEMATOCRIT. 29.7 % (42.0-52.0); HEMOGLOBIN. 10.1 g/dL (14.0-18.0); LYMPHOCYTES % 26.2 % (20.0-50.0); MEAN CORPUSCULAR HEMOGLOBIN 31.4 pg (28.0-32.0); MEAN PLATELET VOLUME 8.4 fl (7.4-10.4); MONOCYTES % 12.8 % (2.0-8.0); NEUTROPHILS % 55.1 % (40.0-76.0); PLATELET 393 x1000/uL (130-400); RED BLOOD CELL COUNT 3.23 mill/uL (4.7-6.1); RED CELL DISTRIBUTION WIDTH 14.1 % (11.6-14.6)
[2021-12-05 07:50] VITALS: BP 151/75
[2021-12-05 08:10] LABS: PHOSPHORUS 2.4 mg/dL (2.5-4.9)
[2021-12-05] MEDS: LIDOCAINE 5% PATCH TOP SCH (09:28)
[2021-12-05] MEDS: DILTIAZEM HCL 120MG CAPSULE CD 24HR PO SCH ×2 (09:29→20:51)
[2021-12-05] MEDS: LEVETIRACETAM 500MG TABLET PO SCH ×2 (09:29→20:52)
[2021-12-05] MEDS: FOLIC ACID 1MG TABLET PO SCH (09:29)
[2021-12-05] MEDS: ONDANSETRON HCL 4MG TABLET PO PRN (11:45)
[2021-12-05] MEDS: INSULIN LISPRO 100 UNITS/ML SUBCUT SCH ×3 (12:11→21:01)
[2021-12-05 14:46] VITALS: BP_SYST 101; BP_SYST 123; BP_SYST 137; BP_DIAS 51; BP_DIAS 64; BP_DIAS 81
[2021-12-05 20:00] VITALS: BP 119/55
[2021-12-05] MEDS ORDERED: SODIUM PHOS,M-BASIC-D-BASIC 15 MM in DEXT 5% WATER 245 ML IV NR (20:00)
[2021-12-05] MEDS: ATORVASTATIN CALCIUM 20MG TABLET PO SCH (20:52)
[2021-12-05] MEDS: MELATONIN 3MG TABLET PO SCH (21:05)
[2021-12-06] MEDS: METOCLOPRAMIDE HCL 5MG TABLET PO SCH ×4 (00:22→17:36)
[2021-12-06] MEDS: HYDRALAZINE HCL 100MG TABLET PO SCH (05:10)
[2021-12-06] MEDS: LACTULOSE 20G/30ML UDC PO SCH ×3 (05:10→21:29)
[2021-12-06] MEDS: BLOOD SUGAR DIAGNOSTIC STRIP TEST SCH ×4 (05:11→20:58)
[2021-12-06 06:51] LABS: BASOPHILS % 0.8 % (0.0-2.0); EOSINOPHILS % 4.6 % (0.0-5.0); HEMATOCRIT. 31.9 % (42.0-52.0); HEMOGLOBIN. 10.8 g/dL (14.0-18.0); LYMPHOCYTES % 25.9 % (20.0-50.0); MEAN CORPUSCULAR HEMOGLOBIN 31.3 pg (28.0-32.0); MEAN CORPUSCULAR VOLUME 92.3 fL (80.0-94.0); MEAN PLATELET VOLUME 8.2 fl (7.4-10.4); MONOCYTES % 12.6 % (2.0-8.0); NEUTROPHILS % 56.1 % (40.0-76.0); PLATELET 363 x1000/uL (130-400); RED BLOOD CELL COUNT 3.45 mill/uL (4.7-6.1); RED CELL DISTRIBUTION WIDTH 13.9 % (11.6-14.6)
[2021-12-06 07:14] LABS: PHOSPHORUS 3.4 mg/dL (2.5-4.9)
[2021-12-06 08:00] VITALS: BP 97/68
[2021-12-06] MEDS: DILTIAZEM HCL 120MG CAPSULE CD 24HR PO SCH (09:00)
[2021-12-06] MEDS: INSULIN LISPRO 100 UNITS/ML SUBCUT SCH ×3 (09:00→18:13)
[2021-12-06] MEDS: LIDOCAINE 5% PATCH TOP SCH (09:54)
[2021-12-06] MEDS: LEVETIRACETAM 500MG TABLET PO SCH ×2 (09:55→21:28)
[2021-12-06] MEDS: FOLIC ACID 1MG TABLET PO SCH (09:55)
[2021-12-06] MEDS ORDERED: SODIUM POLYSTYRENE SULFONATE 15 G/60 ML BOT PO SCH (12:45)
[2021-12-06] MEDS ORDERED: CALCIUM CARBONATE 500MG TABLET CHEW PO PRN (17:30)
[2021-12-06 20:00] VITALS: BP 148/67
[2021-12-06] MEDS ORDERED: DILTIAZEM HCL 180MG CAPSULE CD 24HR PO SCH (21:00)
[2021-12-06] MEDS: ATORVASTATIN CALCIUM 20MG TABLET PO SCH (21:28)
[2021-12-06] MEDS: TIMOLOL MALEATE 0.5% OPHTH DROPS 5ML EACHEYE SCH (21:29)
[2021-12-06] MEDS: MELATONIN 3MG TABLET PO SCH (21:51)
[2021-12-07] MEDS: METOCLOPRAMIDE HCL 5MG TABLET PO SCH ×5 (05:43→23:16)
[2021-12-07] MEDS: LACTULOSE 20G/30ML UDC PO SCH ×3 (05:43→21:15)
[2021-12-07] MEDS: BLOOD SUGAR DIAGNOSTIC STRIP TEST SCH ×4 (05:43→21:00)
[2021-12-07] MEDS: INSULIN LISPRO 100 UNITS/ML SUBCUT SCH ×6 (05:43→17:00)
[2021-12-07 08:03] LABS: BASOPHILS % 0.7 % (0.0-2.0); EOSINOPHILS % 4.2 % (0.0-5.0); HEMATOCRIT. 34.9 % (42.0-52.0); HEMOGLOBIN. 11.6 g/dL (14.0-18.0); LYMPHOCYTES % 25.1 % (20.0-50.0); MEAN CORPUSCULAR VOLUME 93.7 fL (80.0-94.0); MEAN PLATELET VOLUME 8.4 fl (7.4-10.4); MONOCYTES % 11.1 % (2.0-8.0); NEUTROPHILS % 58.9 % (40.0-76.0); PLATELET 349 x1000/uL (130-400); RED BLOOD CELL COUNT 3.72 mill/uL (4.7-6.1); RED CELL DISTRIBUTION WIDTH 14.2 % (11.6-14.6)
[2021-12-07 08:43] LABS: PHOSPHORUS 2.9 mg/dL (2.5-4.9)
[2021-12-07 09:08] VITALS: BP 187/106
[2021-12-07] MEDS: FOLIC ACID 1MG TABLET PO SCH (09:09)
[2021-12-07] MEDS: LEVETIRACETAM 500MG TABLET PO SCH ×2 (09:09→21:15)
[2021-12-07] MEDS: DILTIAZEM HCL 180MG CAPSULE CD 24HR PO SCH (09:09)
[2021-12-07] MEDS: LIDOCAINE 5% PATCH TOP SCH (09:10)
[2021-12-07] MEDS: TIMOLOL MALEATE 0.5% OPHTH DROPS 5ML EACHEYE SCH ×2 (09:10→21:17)
[2021-12-07 10:00] VITALS: BP 146/72
[2021-12-07] MEDS ORDERED: DEXTROSE 50% WATER 50ML SYRINGE IV NR (14:45)
[2021-12-07] MEDS ORDERED: INSULIN REGULAR (HUMULIN R) 300UNITS/3ML VIAL IV NR (15:00)
[2021-12-07] MEDS ORDERED: LOSA100T32 PO (19:26)
[2021-12-07] MEDS ORDERED: AMLO10TA80 PO (19:26)
[2021-12-07] MEDS ORDERED: GLIP10TA10 PO (19:26)
[2021-12-07] MEDS ORDERED: XALAO EACHEYE (19:26)
[2021-12-07] MEDS ORDERED: DOXA2TAB2 PO (19:26)
[2021-12-07 20:00] VITALS: BP 107/67
[2021-12-07] MEDS: ATORVASTATIN CALCIUM 20MG TABLET PO SCH (21:15)
[2021-12-07] MEDS: METOPROLOL TARTRATE 50MG TABLET PO SCH (21:17)
[2021-12-07] MEDS: MELATONIN 3MG TABLET PO SCH (21:28)
[2021-12-08] MEDS: LACTULOSE 20G/30ML UDC PO SCH ×4 (06:00→22:00)
[2021-12-08] MEDS: BLOOD SUGAR DIAGNOSTIC STRIP TEST SCH ×4 (06:11→21:00)
[2021-12-08] MEDS: INSULIN LISPRO 100 UNITS/ML SUBCUT SCH ×6 (06:12→17:00)
[2021-12-08] MEDS: METOCLOPRAMIDE HCL 5MG TABLET PO SCH ×3 (06:13→17:42)
[2021-12-08 07:14] LABS: BASOPHILS % 0.9 % (0.0-2.0); EOSINOPHILS % 5.6 % (0.0-5.0); HEMOGLOBIN. 10.1 g/dL (14.0-18.0); LYMPHOCYTES % 32.6 % (20.0-50.0); MEAN CORPUSCULAR HEMOGLOBIN 30.5 pg (28.0-32.0); MEAN CORPUSCULAR VOLUME 93.9 fL (80.0-94.0); MEAN PLATELET VOLUME 8.8 fl (7.4-10.4); MONOCYTES % 10.8 % (2.0-8.0); NEUTROPHILS % 50.1 % (40.0-76.0); PLATELET 303 x1000/uL (130-400); RED CELL DISTRIBUTION WIDTH 14.2 % (11.6-14.6)
[2021-12-08 07:25] LABS: PHOSPHORUS 3.1 mg/dL (2.5-4.9)
[2021-12-08 07:35] VITALS: BP 107/68
[2021-12-08] MEDS: DILTIAZEM HCL 180MG CAPSULE CD 24HR PO SCH (08:13)
[2021-12-08] MEDS: METOPROLOL TARTRATE 50MG TABLET PO SCH ×2 (08:13→21:39)
[2021-12-08] MEDS: LIDOCAINE 5% PATCH TOP SCH (10:28)
[2021-12-08] MEDS: TIMOLOL MALEATE 0.5% OPHTH DROPS 5ML EACHEYE SCH ×2 (10:28→21:38)
[2021-12-08] MEDS: FOLIC ACID 1MG TABLET PO SCH (10:28)
[2021-12-08] MEDS: LEVETIRACETAM 500MG TABLET PO SCH ×2 (10:28→21:38)
[2021-12-08] MEDS ORDERED: MELA3TAB40 PO (17:27)
[2021-12-08] MEDS ORDERED: DILT180C66 PO (17:27)
[2021-12-08] MEDS ORDERED: KEPP500 PO (17:27)
[2021-12-08] MEDS ORDERED: LIDO700A30 TOP (17:27)
[2021-12-08 20:00] VITALS: BP 116/52
[2021-12-08] MEDS: ATORVASTATIN CALCIUM 20MG TABLET PO SCH (21:38)
[2021-12-08] MEDS: MELATONIN 3MG TABLET PO SCH (22:00)
[2021-12-09] MEDS: LACTULOSE 20G/30ML UDC PO SCH (06:00)
[2021-12-09] MEDS: BLOOD SUGAR DIAGNOSTIC STRIP TEST SCH (06:23)
[2021-12-09] MEDS: INSULIN LISPRO 100 UNITS/ML SUBCUT SCH ×2 (06:23→08:43)
[2021-12-09 08:00] VITALS: BP 116/52
[2021-12-09] MEDS: FOLIC ACID 1MG TABLET PO SCH (08:24)
[2021-12-09] MEDS: LEVETIRACETAM 500MG TABLET PO SCH (08:25)
[2021-12-09] MEDS: DILTIAZEM HCL 180MG CAPSULE CD 24HR PO SCH (08:26)
[2021-12-09] MEDS: LIDOCAINE 5% PATCH TOP SCH (08:29)
[2021-12-09] MEDS: METOPROLOL TARTRATE 50MG TABLET PO SCH (08:35)
[2021-12-09] MEDS: TIMOLOL MALEATE 0.5% OPHTH DROPS 5ML EACHEYE SCH (08:36)
[2021-12-09] MEDS: METOCLOPRAMIDE HCL 5MG TABLET PO SCH ×2 (08:45)
[2021-12-09 09:21] VITALS: BP 143/82
[2021-12-09 10:37] VITALS: BP 112/78
[2021-12-09 15:11] LABS: GAD-65 AUTOANTIBODY 12.7 U/mL (0.0-5.0)
== END 2021-12-09 10:25 | disposition home health service (06) | DRG 64 ==
PROVIDERS: ADMIT Physical Medicine & Rehabilitation Spinal Cord Injury Medicine; ATTEND Internal Medicine
DX: I62.00 Nontraumatic subdural hemorrhage, unspecified (principal); G82.50 Quadriplegia, unspecified; G92.8 Other toxic encephalopathy; E43 Unspecified severe protein-calorie malnutrition; N17.9 Acute kidney failure, unspecified; M62.82 Rhabdomyolysis; I16.1 Hypertensive emergency; E72.20 Disorder of urea cycle metabolism, unspecified; E87.1 Hypo-osmolality and hyponatremia; I50.32 Chronic diastolic (congestive) heart failure; I13.0 Hypertensive heart and chronic kidney disease with heart failure and stage 1 through stage 4 chronic kidney disease, or unspecified chronic kidney disease; I69.234 Monoplegia of upper limb following other nontraumatic intracranial hemorrhage affecting left non-dominant side; R47.01 Aphasia; R13.10 Dysphagia, unspecified; E11.22 Type 2 diabetes mellitus with diabetic chronic kidney disease; E78.5 Hyperlipidemia, unspecified; R47.1 Dysarthria and anarthria; R26.9 Unspecified abnormalities of gait and mobility; R77.8 Other specified abnormalities of plasma proteins; F17.210 Nicotine dependence, cigarettes, uncomplicated; F01.50 Vascular dementia, unspecified severity, without behavioral disturbance, psychotic disturbance, mood disturbance, and anxiety; E78.00 Pure hypercholesterolemia, unspecified; Z79.4 Long term (current) use of insulin; I69.292 Facial weakness following other nontraumatic intracranial hemorrhage; Z83.3 Family history of diabetes mellitus; E78.1 Pure hyperglyceridemia; D64.9 Anemia, unspecified; E53.8 Deficiency of other specified B group vitamins; F43.11 Post-traumatic stress disorder, acute; N18.30 Chronic kidney disease, stage 3 unspecified; E83.39 Other disorders of phosphorus metabolism; R74.01 Elevation of levels of liver transaminase levels; R31.9 Hematuria, unspecified; E11.65 Type 2 diabetes mellitus with hyperglycemia; E11.649 Type 2 diabetes mellitus with hypoglycemia without coma; M71.21 Synovial cyst of popliteal space [Baker], right knee; I95.1 Orthostatic hypotension; E87.5 Hyperkalemia; Z68.20 Body mass index [BMI] 20.0-20.9, adult
CPT/HCPCS: 36415; 80048; 80053; 80061; 82088; 82306; 82533; 82550; 82607; 82728; 82746; 82962; 83519; 83735; 84100; 84134; 84443; 84681; 85025; 92523; 92610; 93970; 97110; 97112; 97116; 97162; 97166; 97530; 97535; J1815; J3490; J7060; J8597; Q0162